=== PATIENT | male | born 2000 | race Two or more races ===

== ENCOUNTER 2020-07-27 20:53 | Emergency (ER) | payer MEDICAID, OTHER ==
[~2020-07-27] VITALS: Ht 182.9 cm; Wt 105.0 kg
[2020-07-28] VITALS: BP 131/74
== END 2020-07-28 01:47 | disposition home or self-care (01) ==
LOC: ER 20:53
DX: R00.0 Tachycardia, unspecified (principal); F41.9 Anxiety disorder, unspecified; F45.8 Other somatoform disorders; F12.10 Cannabis abuse, uncomplicated
CPT/HCPCS: 93005; 99283

== ENCOUNTER 2022-05-01 16:20 | Emergency (ER) | payer MEDICAID, OTHER ==
[~2022-05-01] VITALS: Ht 182.9 cm; Wt 101.0 kg
[2022-05-01] MEDS ORDERED: ONDA4TAB50 MT (19:26)
[2022-05-01] MEDS ORDERED: ALPR0.5T MT (19:26)
[2022-05-01] MEDS ORDERED: ONDANSETRON 4MG ODT PO ONE (19:30)
[2022-05-01 19:42] VITALS: BP 136/95
== END 2022-05-01 19:42 | disposition home or self-care (01) ==
LOC: ER 16:20
DX: F15.23 Other stimulant dependence with withdrawal (principal); F41.9 Anxiety disorder, unspecified; R11.0 Nausea
CPT/HCPCS: 99283; Q0162